=== PATIENT | male | born 1955 | race American Indian/Alaskan Native ===

== ENCOUNTER 2016-09-16 09:27 | Outpatient (CLI) | payer MEDICARE ==
--- NOTE | 2016-09-16 14:03 | Cat Scan Report ---
CT CHEST, ABDOMEN AND PELVIS WITH CONTRAST: 09/16/16 09:27:00 CLINICAL: Carcinoid syndrome. COMPARISON: 06/10/16 TECHNIQUE: Volumetric acquisition and 1.25 millimeter scan reconstructions after the uneventful intravenous injection of 100 cc of Omnipaque 300. Consent was obtained prior to the administration of the contrast. Oral contrast was also given. FINDINGS: Chest: The lungs are clear. No pulmonary nodule or mass. Normal aorta, heart and pulmonary arteries. A left Vsouyv-c-Pyob tip is in the right atrium. Stable multinodular thyroid enlargement with greater enlargement of the right lobe. Normal esophagus and trachea. No mediastinal or hilar lymphadenopathy.No axillary or supraclavicular lymphadenopathy. Abdomen: The liver is normal size with the right lobe measuring approximately 15 cm in length. Stable multilobar hypodense hepatic masses with too numerous to count masses. The largest is in the posterior right lobe and measures 5.2 x 4.7 cm. Normal bile duct status post cholecystectomy. Normal stomach, duodenum and spleen. Fatty infiltration of the pancreas. The adrenal glands are normal. The kidneys are normal except for bilateral tiny cortical cysts. The renal collecting systems and ureters are nondilated. Normal aorta and inferior vena cava. A stable heterogeneous mesenteric mass of the right mid abdomen measures 6.9 cm craniocaudal dimension of 4.5 cm AP dimension by 2.4 cm transverse dimension. It has both solid and cystic components as well as stable calcifications. Stable distortion of the small bowel mesentery.Minimal small bowel distention with air and fluid. Normal ascending, transverse and descending colon. An appendix is not identified. Pelvis: Normal urinary bladder and rectum.Normal prostate and seminal vesicles.. Bone windows demonstrate no suspicious bone lesion. IMPRESSION:1. Stable multinodular thyroid and otherwise negative chest. 2. Stable hepatic masses. 3. Stable mesenteric mass with distortion of the small bowel mesentery. 4. No new mass or lymphadenopathy. 5. Status post cholecystectomy and appendectomy.
--- NOTE | 2016-09-16 16:15 | Magnetic Resonance Report ---
MRI BRAIN WITHOUT AND WITH CONTRAST: 09/16/16 CLINICAL: History of carcinoid syndrome. Followup right meningioma. COMPARISON: 06/07/15 TECHNIQUE: Axial diffusion, T1, FLAIR, gradient echo T2*, and coronal and axial T2 and sagittal T1 plus coronal and axial postcontrast T1 sequences on a 1.5 Me[place]han magnet. 15.0 cc of Multihance was injected intravenously for the contrast portion of the exam. Consent was obtained prior to the administration of contrast. FINDINGS: The previously described right temporal extra-axial mass is slightly larger and measures 2.1 x 1.4 x 1.9 cm. It demonstrates slightly greater peripheral enhancement than on previous exams. No other lesions are identified. No restricted diffusion. The ventricles and sulci are normal for age. Stable bilateral extensive multifocal white matter hyperintensities on FLAIR and T2. No hemorrhage, edema or extra-axial collection. Normal pituitary and optic chiasm. The brainstem and cerebellum are normal. Intact vascular flow voids. The orbits, sinuses and soft tissues are normal. Normal calvarium and skull base. IMPRESSION: 1. No acute change. 2. Stable extensive chronic white matter microangiopathy. 3. A slightly larger right temporal lobe meningioma with slightly greater enhancement compared to previous exams. No other brain lesions.
== END 2016-09-16 09:28 | disposition home or self-care (01) ==
LOC: SPVIMAG 09:27
PROVIDERS: ATTEND Internal Medicine Hematology & Oncology
DX: D32.9 Benign neoplasm of meninges, unspecified (principal); E04.9 Nontoxic goiter, unspecified; R16.0 Hepatomegaly, not elsewhere classified; K86.89 Other specified diseases of pancreas; I73.89 Other specified peripheral vascular diseases; Z90.49 Acquired absence of other specified parts of digestive tract; Z98.890 Other specified postprocedural states
CPT/HCPCS: 70553; 71260; 74177; A9577; Q9967

== ENCOUNTER 2017-02-05 13:07 | Emergency (ER) | payer MEDICARE ==
[2017-02-05 13:56] LABS: Basophils % (Auto) 0.3 % (0.0-1.8); Eosinophils % (Auto) 5.9 % (0.0-4.3); Hematocrit 37.6 % (35.5-45.6); Hemoglobin 12.2 gm/dl (11.8-15.2); Mean Corpuscular HGB Conc 33 % (32-34); Mean Corpuscular Hemoglobin 29 pg (28-32); Mean Corpuscular Volume 90 fl (84-94); Platelet Count 156 K/mm3 (140-440); Red Blood Count 4.16 M/mm3 (3.65-5.03); Red Cell Distribution Width 13.5 % (13.2-15.2); White Blood Count 5.1 K/mm3 (4.5-11.0)
[2017-02-05 14:11] LABS: Anion Gap 19 mmol/L; Blood Urea Nitrogen 12 mg/dL (9-20); Calcium 8.7 mg/dL (8.4-10.2); Carbon Dioxide 24 mmol/L (22-30); Chloride 100.4 mmol/L (98-107); Glucose 146 mg/dL (75-100); Potassium 4.2 mmol/L (3.6-5.0); Sodium 139 mmol/L (137-145)
--- NOTE | 2017-02-05 14:18 | Cat Scan Report ---
CT HEAD WITHOUT CONTRAST: HISTORY: Left arm numbness. Serial contiguous axial images were obtained through the cranium. Intravenous contrast material was not administered. The ventricles are normal in size and appearance. Mild nonspecific chronic white matter changes are again noted. No evidence for hemorrhage, extra-axial fluid collection or large area of acute ischemia. Meningioma along the right convexity measures up to 2.3 cm and is grossly unchanged since MR brain dated 09/16/16. The posterior fossa and contents are within normal limits. The sinuses and mastoid air cells are well-aerated. IMPRESSION: No acute intracranial process. Mild chronic white matter changes. Meningioma, unchanged.
[2017-02-05 14:24] LABS: Partial Thromboplastin Time 26.2 Sec. (24.2-36.6)
[2017-02-05 20:36] VITALS: BP 140/83
[2017-02-05] MEDS ORDERED: FUL-GLO OP ONE ×2 (20:54→21:00)
--- NOTE | 2017-02-05 20:54 | Emergency Department Report ---
ED Neuro Deficit HPI - General Chief Complaint: Weakness Stated Complaint: LT ARM NUMBNESS Time Seen by Provider: 02/05/17 20:42 Source: patient Mode of arrival: Ambulatory Limitations: No Limitations - History of Present Illness Initial Comments: Patient is a 61-year-old male with a history of liver cancer, unknown to me, presenting to the ER with intermittent left arm numbness. Patient reports he knows after repetitive overhead motion washing his 's car, his arm became numb however after he entered the house the numbness went away. Patient reports she's been noticing his left arm becoming numb intermittently with overhead movements. Eyes he denies any strength loss or weakness in any other extremity, speech changes, headaches, vision changes, chest pain, shortness of breath, nausea vomiting diarrhea, abdominal pain, extremity pain, travel, or sick contacts. Patient reports he does get IV chemotherapy every 6 weeks. And uses a fentanyl patch. Currently the patient is asymptomatic - Related Data Home Medications: Home Medications Medication Instructions Recorded Confirmed Last Taken ALPRAZolam [Xanax TAB] 1 mg PO BID PRN 07/17/15 07/17/15 Unknown Cholecalciferol (Vitamin D3) 50,000 unit PO QWEEK 07/17/15 07/17/15 Unknown [Vitamin D] Diphenoxylate/Atropine [Lomotil] 1 tab PO Q4H PRN 07/17/15 07/17/15 Unknown Docusate Sodium [Colace] 100 mg PO BID PRN 07/17/15 07/17/15 Unknown Methylnaltrexone [Relistor] 12 mg SUB-Q Q2D 07/17/15 07/17/15 Unknown Metoprolol [Lopressor] 25 mg PO BID 07/17/15 07/17/15 Unknown Multivit-Min/Iron Fum/Folic AC 1 each PO DAILY 07/17/15 07/17/15 Unknown [Xknkd-Gvwmewy-Vlnoaqhl Tablet] Octreotide Acetate [Sandostatin 30 mg IM Q6W 07/17/15 07/17/15 Unknown Lar] Omeprazole [PriLOSEC] 40 mg PO QDAY 07/17/15 07/17/15 Unknown Ondansetron [Zofran TAB] 8 mg PO Q8HR PRN 07/17/15 07/17/15 Unknown PARoxetine [Paxil] 10 mg PO DAILY 07/17/15 07/17/15 Unknown cloNIDine [Catapres] 0.2 mg PO QHS 07/17/15 07/17/15 Unknown fentaNYL [Duragesic] 50 mcg TD Q3D 07/17/15 07/17/15 Unknown hydrOXYzine PAMOATE [Vistaril] 25 mg PO Q6HR PRN 07/17/15 07/17/15 Unknown oxyCODONE [Roxicodone] 10 mg PO Q6HR PRN 07/17/15 07/17/15 Unknown Previous Rx's Medication Instructions Recorded Last Taken Type Cyclobenzaprine [Flexeril] 10 mg PO TID PRN #20 tablet 07/17/15 Unknown Rx Ibuprofen [Motrin 800 MG tab] 800 mg PO Q8HR PRN #20 tablet 07/17/15 Unknown Rx Allergies/Adverse Reactions: Allergies Allergy/AdvReac Type Severity Reaction Status Date / Time adhesive tape Allergy Rash Verified 07/17/15 11:55 latex Allergy Rash Verified 06/07/15 09:06 morphine AdvReac HALLUCINATI Verified 06/07/15 09:06 ON ED Review of Systems ROS: Stated complaint: LT ARM NUMBNESS Other details as noted in HPI Comment: All other systems reviewed and negative ED Past Medical Hx - Past Medical History Previous Medical History?: Yes Hx Diabetes: No Hx of Cancer: Yes (liver CA) Additional medical history: brain tumor- Dr. Hernandez - Surgical History Past Surgical History?: Yes Hx Cholecystectomy: Yes Additional Surgical History: PEG tube , abd surg - Social History Smoking Status: Never Smoker Substance Use Type: None - Medications Home Medications: Home Medications Medication Instructions Recorded Confirmed Last Taken Type ALPRAZolam [Xanax TAB] 1 mg PO BID PRN 07/17/15 07/17/15 Unknown History Cholecalciferol (Vitamin D3) 50,000 unit PO QWEEK 07/17/15 07/17/15 Unknown History [Vitamin D] Cyclobenzaprine [Flexeril] 10 mg PO TID PRN #20 tablet 07/17/15 Unknown Rx Diphenoxylate/Atropine [Lomotil] 1 tab PO Q4H PRN 07/17/15 07/17/15 Unknown History Docusate Sodium [Colace] 100 mg PO BID PRN 07/17/15 07/17/15 Unknown History Ibuprofen [Motrin 800 MG tab] 800 mg PO Q8HR PRN #20 tablet 07/17/15 Unknown Rx Methylnaltrexone [Relistor] 12 mg SUB-Q Q2D 07/17/15 07/17/15 Unknown History Metoprolol [Lopressor] 25 mg PO BID 07/17/15 07/17/15 Unknown History Multivit-Min/Iron Fum/Folic AC 1 each PO DAILY 07/17/15 07/17/15 Unknown History [Ycqcq-Lujagmm-Hpnidafw Tablet] Octreotide Acetate [Sandostatin 30 mg IM Q6W 07/17/15 07/17/15 Unknown History Lar] Omeprazole [PriLOSEC] 40 mg PO QDAY 07/17/15 07/17/15 Unknown History Ondansetron [Zofran TAB] 8 mg PO Q8HR PRN 07/17/15 07/17/15 Unknown History PARoxetine [Paxil] 10 mg PO DAILY 07/17/15 07/17/15 Unknown History cloNIDine [Catapres] 0.2 mg PO QHS 07/17/15 07/17/15 Unknown History fentaNYL [Duragesic] 50 mcg TD Q3D 07/17/15 07/17/15 Unknown History hydrOXYzine PAMOATE [Vistaril] 25 mg PO Q6HR PRN 07/17/15 07/17/15 Unknown History oxyCODONE [Roxicodone] 10 mg PO Q6HR PRN 07/17/15 07/17/15 Unknown History ED Neuro Physical Exam - General Limitations: No Limitations General appearance: alert, in no apparent distress Suspected Stroke: No - Head Head exam: Present: atraumatic, normocephalic - Eye Eye exam: Present: normal appearance, PERRL, EOMI. Absent: scleral icterus, nystagmus Pupils: Absent: irregular, unequal - ENT ENT exam: Present: normal exam, mucous membranes moist - Neck Neck exam: Present: normal inspection - Respiratory Respiratory exam: Present: normal lung sounds bilaterally. Absent: respiratory distress, wheezes, rales, rhonchi, stridor, chest wall tenderness - Cardiovascular Cardiovascular Exam: Present: regular rate, normal rhythm. Absent: systolic murmur, diastolic murmur, rubs, gallop - GI/Abdominal GI/Abdominal exam: Present: soft, normal bowel sounds. Absent: distended, tenderness, guarding, rebound, rigid - Rectal Rectal exam: Present: deferred - Extremities Exam Extremities exam: Present: normal inspection, full ROM, normal capillary refill. Absent: tenderness, pedal edema, joint swelling - Back Exam Back exam: Present: normal inspection - Neurological Exam Neurological exam: Present: alert, oriented X3, CN II-XII intact, normal gait. Absent: motor sensory deficit - NIHSS Assessment Interval: Baseline 1a. Level of Consciousness: alert 1b. LOC Questions: answers correctly 1c. LOC Commands: performs tasks correctly 2. Best Gaze: normal 3. Visual: no visual loss 4. Facial Palsy: normal symmetrical movement 5b. Motor Arm Right: no drift 5a. Motor Arm Left: no drift 6a. Motor Leg Left: no drift 6b. Motor Leg Right: no drift 7. Limb Ataxia: absent 8. Sensory: normal 9. Best Language: no aphasia 10. Dysarthria: normal 11. Extinction/Inattention: no abnormality Total Score: 0 Stroke Severity: No Stroke Symptoms - Psychiatric Psychiatric exam: Present: normal affect, normal mood - Skin Skin exam: Present: warm, dry, intact, normal color. Absent: rash ED Course Vital Signs 02/05/17 02/05/17 02/05/17 13:24 20:27 20:34 Temperature 98.2 F 97.8 F Pulse Rate 65 64 Respiratory 14 16 Rate Blood Pressure 113/65 140/83 O2 Sat by Pulse 100 99 Oximetry - Lab Data Result diagrams: 02/05/17 13:39 02/05/17 13:39 Lab Results 02/05/17 02/05/17 02/05/17 Range/Units 13:39 13:39 13:39 WBC 5.1 (4.5-11.0) K/mm3 RBC 4.16 (3.65-5.03) M/mm3 Hgb 12.2 (11.8-15.2) gm/dl Hct 37.6 (35.5-45.6) % MCV 90 (84-94) fl MCH 29 (28-32) pg MCHC 33 (32-34) % RDW 13.5 (13.2-15.2) % Plt Count 156 (140-440) K/mm3 Lymph % (Auto) 41.5 H (13.4-35.0) % [place] % (Auto) 8.7 H (0.0-7.3) % Eos % (Auto) 5.9 H (0.0-4.3) % Baso % (Auto) 0.3 (0.0-1.8) % Lymph # 2.1 (1.2-5.4) K/mm3 [place] # 0.4 (0.0-0.8) K/mm3 Eos # 0.3 (0.0-0.4) K/mm3 Baso # 0.0 (0.0-0.1) K/mm3 Seg Neutrophils % 43.6 (40.0-70.0) % Seg Neutrophils # 2.2 (1.8-7.7) K/mm3 PT 13.1 (12.2-14.9) Sec. INR 1.00 (0.87-1.13) APTT 26.2 (24.2-36.6) Sec. Thrombin Time (15.1-19.6) Sec. Sodium 139 (137-145) mmol/L Potassium 4.2 (3.6-5.0) mmol/L Chloride 100.4 (98-107) mmol/L Carbon Dioxide 24 (22-30) mmol/L Anion Gap 19 mmol/L BUN 12 (9-20) mg/dL Creatinine 1.0 (0.8-1.5) mg/dL Estimated GFR > 60 ml/min BUN/Creatinine Ratio 12.00 % Glucose 146 H (75-100) mg/dL Calcium 8.7 (8.4-10.2) mg/dL Troponin T < 0.010 (0.00-0.029) ng/mL 02/05/17 Range/Units 13:39 WBC (4.5-11.0) K/mm3 RBC (3.65-5.03) M/mm3 Hgb (11.8-15.2) gm/dl Hct (35.5-45.6) % MCV (84-94) fl MCH (28-32) pg MCHC (32-34) % RDW (13.2-15.2) % Plt Count (140-440) K/mm3 Lymph % (Auto) (13.4-35.0) % [place] % (Auto) (0.0-7.3) % Eos % (Auto) (0.0-4.3) % Baso % (Auto) (0.0-1.8) % Lymph # (1.2-5.4) K/mm3 [place] # (0.0-0.8) K/mm3 Eos # (0.0-0.4) K/mm3 Baso # (0.0-0.1) K/mm3 Seg Neutrophils % (40.0-70.0) % Seg Neutrophils # (1.8-7.7) K/mm3 PT (12.2-14.9) Sec. INR (0.87-1.13) APTT (24.2-36.6) Sec. Thrombin Time 17.5 (15.1-19.6) Sec. Sodium (137-145) mmol/L Potassium (3.6-5.0) mmol/L Chloride (98-107) mmol/L Carbon Dioxide (22-30) mmol/L Anion Gap mmol/L BUN (9-20) mg/dL Creatinine (0.8-1.5) mg/dL Estimated GFR ml/min BUN/Creatinine Ratio % Glucose (75-100) mg/dL Calcium (8.4-10.2) mg/dL Troponin T (0.00-0.029) ng/mL - EKG Data -: EKG Interpreted by Ca 02/05/17 13:29 Sinus bradycardia first-degree AV block at 59 bpm, QTc 413 ms, normal axis, no LVH, no ST changes, no STEMI - Radiology Data Radiology results: report reviewed CT HEAD WITHOUT CONTRAST: HISTORY: Left arm numbness. Serial contiguous axial images were obtained through the cranium. Intravenous contrast material was not administered. The ventricles are normal in size and appearance. Mild nonspecific chronic white matter changes are again noted. No evidence for hemorrhage, extra-axial fluid collection or large area of acute ischemia. Meningioma along the right convexity measures up to 2.3 cm and is grossly unchanged since MR brain dated 09/16/16. The posterior fossa and contents are within normal limits. The sinuses and mastoid air cells are well-aerated. IMPRESSION: No acute intracranial process. Mild chronic white matter changes. Meningioma, unchanged. Transcribed By: TTR Dictated By: ALE ANDERSON JR, MD Electronically Authenticated By: ALE ANDERSON JR, MD Signed Date/Time: 02/05/17 1408 CXR: (+)L chest port, no acute cardiopulmonary abnormality seen as visualized by me - Medical Decision Making Results discussed with patient. After evaluation of the patient, the numbness is caused with overhead motion, this is likely msk in nature and not a CVA. HOwever, I did discuss with the patient to monitor the numbness and to write down when he has it and if its illicited with overhead movement only. Pt understood and will follow up with his PMD. Critical care attestation.: If time is entered above; I have spent that time in minutes in the direct care of this critically ill patient, excluding procedure time. ED Disposition Clinical Impression: Paresthesia of arm Disposition: DC-01 TO HOME OR SELFCARE Is pt being admited?: No Condition: Stable Instructions: Paresthesia (ED) Referrals: NICA LOCKE JR, MD [Primary Care Provider] - 3-5 Days
[2017-02-05] MEDS ORDERED: TETRACAINE 0.5% OU ONE (21:01)
--- NOTE | 2017-02-05 22:22 | XRay Report ---
FINAL REPORT PROCEDURE: XR CHEST 1V AP TECHNIQUE: Chest radiograph anteroposterior view. CPT 12014 HISTORY: cva COMPARISON: No prior studies are available for comparison. FINDINGS: Heart: Normal. Mediastinum/Vessels: Atherosclerotic calcifications. Lungs/Pleural space: Normal. Bony thorax: No acute osseous abnormality. Life support devices: Port on the left extends to the lower superior vena cava. IMPRESSION: No acute cardiopulmonary abnormality.
== END 2017-02-05 22:09 | disposition home or self-care (01) ==
LOC: ED 13:07
DX: R20.0 Anesthesia of skin (principal); Z85.05 Personal history of malignant neoplasm of liver; Z88.6 Allergy status to analgesic agent; Z91.040 Latex allergy status
CPT/HCPCS: 36415; 70450; 71010; 80048; 84484; 85025; 85610; 85670; 85730; 93005; 93010